=== PATIENT | male | born 1980 | race Caucasian/White ===

== ENCOUNTER 2018-08-27 06:51 | Emergency (ER) | payer OTHER ==
[2018-08-27 07:08] VITALS: TEMP 97.1; BMI 30.8
[2018-08-27] MEDS ORDERED: KETOROLAC TROMETHAMINE 60 MG/2 ML VIAL IM ONE (08:20)
[2018-08-27] MEDS ORDERED: diazePAM 2 MG TABLET PO ONE (08:20)
[2018-08-27] MEDS ORDERED: diazePAM 2 MG TABLET ONE (08:39)
[2018-08-27] MEDS ORDERED: KETOROLAC TROMETHAMINE 60 MG/2 ML VIAL ONE (08:40)
--- NOTE | 2018-08-27 09:11 | PDOC ---
History of Present Illness - General Chief Complaint: Back Pain Stated Complaint: BACK PAIN Time Seen by Provider: 08/27/18 07:40 History Source: Patient Exam Limitations: No Limitations - History of Present Illness Initial Comments: 08/27/18 08:54 38y M no known pmhx presents with R back pain for the past 2 days. Pt states he was doing some heavy liifting on wed and was ok, but on had mild R lower back pain, thathas been gradually worsening. He went to his ortho doc on wednesday and had a cortisone shot with mild improvement. Pt notes this morning when he woke up he could barely stand due to the pain so called the ambulance to bring him. no associated upp back pain, recent trauma/falls, cp, sob, nv h denies fever/chills, numbness/tingling/weakness, urinary or bowel incontinence. Pain is non radiating, worse when he moves around. improves with rest and is intermittent and smasmotic in nature. social: denies IVDU Past History - Past Medical History Allergies/Adverse Reactions: Allergies Allergy/AdvReac Type Severity Reaction Status Date / Time No Known Allergies Allergy Verified 08/27/18 07:08 Home Medications: Ambulatory Orders Acetaminophen [Tylenol] 650 mg PO QID PRN #650 mg 08/27/18 Cyclobenzaprine HCl [Flexeril -] 10 mg PO TID PRN #21 tablet 08/27/18 Ibuprofen 400 mg PO QID PRN #30 tablet 08/27/18 Metaxalone [Skelaxin] 800 mg PO TID PRN #15 tablet 08/27/18 Tramadol HCl 50 mg PO QID PRN #12 tablet MDD 4 08/27/18 - Suicide/Smoking/Psychosocial Hx Smoking History: Never smoked Have you smoked in the past 12 months: No Information on smoking cessation initiated: No Hx Alcohol Use: No Drug/Substance Use Hx: No Substance Use Type: None Review of Systems - Review of Systems Able to Perform ROS?: Yes Comments:: 08/27/18 09:11 Constitutional - no reported Fever, Chills, Respiratory: no reported sob, Cardiac: no reported chest pain, Abd/GI: no reported abd pain, nausea, vomiting, blood per rectum, melena, diarrhea Musculskelatal - + back pain no reportedjoint swelling skin - no reported bruising, erythema, rash neurological: no reported numbness, focal weakness, tingling *Physical Exam - Vital Signs Last Vital Signs Temp Pulse Resp BP Pulse Ox 97.1 F L 78 19 135/64 97 08/27/18 06:55 08/27/18 06:55 08/27/18 06:55 08/27/18 06:55 08/27/18 06:55 - Physical Exam Comments: 08/27/18 09:12 GENERAL: The patient is awake, alert, and fully oriented, Nontoxic - in no acute distress. ABDOMEN: Soft, nontender, normoactive bowel sounds. No guarding, no rebound. . No CVA tenderness EXTREMITIES: Normal range of motion, no edema. No clubbing or cyanosis. No cords, erythema, or tenderness. MSK: ttp R lower back, +hypertrophy of R lumbar paraspnal muscles that exactl yreproduces his pain, (pain and ttp only present when he sits/moves), no focal ttp at thoracic, cervical, lumbar spine NEUROLOGICAL: No facial assymetry, Normal speech, mnoivng all 4 ex spontaneously and symmetrically, sensation intact b/l SKIN: Warm, Dry, normal turgor, Moderate Sedation - Procedure Monitoring Vital Signs: Procedure Monitoring Vital Signs Temperature 97.1 F L 08/27/18 06:55 Pulse Rate 78 08/27/18 06:55 Respiratory Rate 19 08/27/18 06:55 Blood Pressure 135/64 08/27/18 06:55 O2 Sat by Pulse Oximetry (%) 97 08/27/18 06:55 Medical Decision Making - Medical Decision Making 08/27/18 09:13 suspect muscle spasms no signs of cauda equina or spinal epidurla abscess no focal ttp to suggest fx will give toradol and valium 08/27/18 12:04 pt feels slightly improved at rest, but when he sits up he still has sever spasms of his back will give tylenol and flexeril will reassess 08/27/18 14:04 pt still in signficant amount of pain declines narcotics though will give another dose of toradol IM (pt is 6 hrs after last dose) and dose of teramadol 08/27/18 16:38 The patient is feeling slightly better is able to stand on his own but able to ambulate due to the pain the patient has refused opioids in the past due to concern for addiction, he he states he is willing to give it a try L give the patient a dose of oxycodone as urinary had a tramadol earlier. 08/27/18 17:47 pt sandra null better able to tolerate standing up without asistance and abmulating will dc the with motrin/tylenol, skelaxin and tramadol will have him fu with pmd reutnr precautions were discused A portion of this note was documented by scribe services under my direction. I have reviewed the details of the note, within reason, and agree with the documentation with the following case summary and management plan written by me *DC/Admit/Observation/Transfer Diagnosis at time of Disposition: Back muscle spasm - Discharge Dispostion Disposition: HOME Condition at time of disposition: Improved Decision to Admit order: No - Prescriptions Prescriptions: Acetaminophen [Tylenol] 650 mg PO QID PRN #650 mg PRN Reason: Back Pain Cyclobenzaprine HCl [Flexeril -] 10 mg PO TID PRN #21 tablet PRN Reason: Back Pain Ibuprofen 400 mg PO QID PRN #30 tablet PRN Reason: Pain Metaxalone [Skelaxin] 800 mg PO TID PRN #15 tablet PRN Reason: Back Pain Tramadol HCl 50 mg PO QID PRN #12 tablet MDD 4 PRN Reason: Pain - Referrals Referrals: [facility] [Provider Group] - Patient Instructions Printed Discharge Instructions: DI for Back Spasm Additional Instructions: Return to the emergency department immediately with ANY new, persistent or worsening symptoms including numbness, tingling, weakness, fevers or any other concerns. Take ibuprofen (400mg)/tylenol(650mg) every 6 hours for 2 days. Take the skelaxin twice daily if you still have pain/discomfort. Caution in using Valium as it may make you sleepy. Do not drive or put yourself in any position where you would be in danger. Apply heat to your sore muscles. You MUST call and follow up with your doctor tomorrow for further evaluation of your symptoms. Your emergency department visit is not complete without a followup with your doctor for reevaluation.. Results were discussed with you. Please make sure your doctor reviews the results of your emergency evaluation. Print Language: PARAGUAYAN - Post Discharge Activity
[2018-08-27] MEDS ORDERED: ACETAMINOPHEN 325 MG TABLET (FP) PO ONE (12:02)
[2018-08-27] MEDS ORDERED: CYCLOBENZAPRINE HCL 10 MG TABLET (FP) PO ONE (12:04)
[2018-08-27] MEDS ORDERED: CYCLOBENZAPRINE HCL 10 MG TABLET (FP) ONE (12:17)
[2018-08-27] MEDS ORDERED: ACETAMINOPHEN 325 MG TABLET (FP) ONE (12:17)
[2018-08-27] MEDS ORDERED: traMADol HCL 50 MG TABLET PO ONE (14:04)
[2018-08-27] MEDS ORDERED: KETOROLAC TROMETHAMINE 30 MG/1 ML VIAL IM ONE (14:04)
[2018-08-27] MEDS ORDERED: traMADol HCL 50 MG TABLET ONE (15:33)
[2018-08-27] MEDS ORDERED: KETOROLAC TROMETHAMINE 30 MG/1 ML VIAL ONE (15:33)
[2018-08-27] MEDS ORDERED: oxyCODONE HCL 5 MG TABLET PO ONE (16:37)
[2018-08-27] MEDS ORDERED: oxyCODONE HCL 5 MG TABLET ONE (16:58)
[2018-08-27 18:00] VITALS: BP 127/68; PULSE 72
== END 2018-08-27 18:01 | disposition home or self-care (01) ==
LOC: JER 06:51
PROC: 3E0233Z Introduction of Anti-inflammatory into Muscle, Percutaneous Approach (ICD-10-PCS; principal; 2018-08-27)
DX: M62.830 Muscle spasm of back (principal)
CPT/HCPCS: 99282-25